=== PATIENT | female | born 1980 | race African-American/Black ===

== ENCOUNTER 2018-01-01 11:11 | Emergency (ER) | payer OTHER | END 2018-01-01 12:35 | disposition home or self-care (01) | LOC: ER 12:35 | DX: B07.0 Plantar wart (principal); J45.909 Unspecified asthma, uncomplicated; F31.9 Bipolar disorder, unspecified; Z88.8 Allergy status to other drugs, medicaments and biological substances; Z91.041 Radiographic dye allergy status | CPT/HCPCS: 99283 ==

== ENCOUNTER → 2018-04-08 | Outpatient (CLI) | payer OTHER ==
[2018-01-01 11:18] VITALS: BP 134/83
[~2018-04-08] MED LIST: ACET-704 PO; CETI10TA22 PO
--- NOTE | 2018-04-08 16:50 | RAD ---
Pelvic ultrasound, 04/08/2018: HISTORY: Excessive menstruation Transabdominal scans were initially performed. The pelvic structures were not clearly delineated and therefore transvaginal scanning was also performed. The uterus measures 10 x 7 x 5 cm. This central uterine echo complex measures approximately 9 mm which is within normal limits for the postmenopausal state. No uterine mass is seen. The right ovary measures 3.1 x 1.5 x 1.6 cm. The left ovary measures 4.3 x 1.8 x 2.2 cm. There is a 2.6 cm septated cyst or cyst cluster in the left ovary. There is blood flow in both ovaries. The adnexal regions are otherwise unremarkable. No free fluid is evident in the pelvis. IMPRESSION: 1. Small septated left ovarian cyst or cyst cluster. This is likely a functional cyst. Sonographic follow-up is suggested. 2. The pelvic ultrasound is otherwise unremarkable. Electronically signed by: Martin José MD (04/08/2018 4:47 PM) [facility]
== END | disposition home or self-care (01) ==
LOC: US 11:14
PROVIDERS: ATTEND Obstetrics & Gynecology
DX: N83.202 Unspecified ovarian cyst, left side (principal); N92.0 Excessive and frequent menstruation with regular cycle; N81.10 Cystocele, unspecified; N81.6 Rectocele; J45.909 Unspecified asthma, uncomplicated; Z88.8 Allergy status to other drugs, medicaments and biological substances
CPT/HCPCS: 76830; 76856

== ENCOUNTER 2018-06-24 13:49 | Emergency (ER) | payer OTHER ==
[~2018-06-24] VITALS: Ht 180.3 cm; Wt 130.2 kg
[2018-06-24 14:32] VITALS: BP 154/84
[2018-06-24 15:18] LABS: BILIRUBIN,URINE NEGATIVE (NEG); CLARITY,URINE CLEAR; COLOR,URINE YELLOW; NITRITE,URINE NEGATIVE (NEG); PH,URINE 6.5; PROTEIN,URINE NEGATIVE (NEG-TRACE); UROBILINOGEN,URINE 0.2 mg/dL (0.2 mg/dL)
[2018-06-24 15:23] LABS: BACTERIA,URINE 0 /HPF (0-FEW); RBC,URINE 0 /HPF (0-2); SQUAMOUS EPITHELIAL CELL,UR FEW /LPF; WBC,URINE 0 /HPF (0-4)
--- NOTE | 2018-06-24 16:50 | PHYS DOC ---
Past Medical History Past Medical History: Asthma, Bipolar Past Surgical History: Other Additional Past Surgical Histo: Back Alcohol Use: None Drug Use: Phencyclidine Adult General Chief Complaint Chief Complaint: SEXUALLY TRANSMITTED DISEASE HPI HPI please see paper chart as patient was seen during down time. Review of Systems Review of Systems Current Medications Current Medications Current Medications Medications (Trade) Dose Ordered Sig/Angel Start Time Stop Time Status Last Admin Dose Admin Azithromycin (Zithromax) 1,000 mg 1X ONCE 06/24/18 17:00 06/24/18 17:01 DC 06/24/18 16:55 1,000 MG Ceftriaxone Sodium (Rocephin Im) 250 mg 1X ONCE 06/24/18 17:00 06/24/18 17:01 DC 06/24/18 16:55 250 MG Allergies Allergies Allergies Coded Allergies Type Severity Reaction Last Updated Verified ibuprofen Allergy Unknown 01/01/18 Yes iodine Allergy Unknown 01/01/18 Yes Physical Exam Physical Exam Current Patient Data Vital Signs Vital Signs Date Time Temp Pulse Resp B/P (MAP) Pulse Ox O2 Delivery O2 Flow Rate FiO2 06/24/18 14:32 99.0 154/84 (107) 99.0 Lab Values Laboratory Tests Test 06/24/18 14:40 06/24/18 14:45 06/24/18 16:30 POC Urine HCG, Qualitative Hcg negative (Negative) Urine Collection Type Unknown Urine Color Yellow Urine Clarity Clear Urine pH 6.5 Urine Specific [place] 1.010 Urine Protein Negative mg/dL (NEG-TRACE) Urine Glucose (UA) Negative mg/dL (NEG) Urine Ketones (Stick) Negative mg/dL (NEG) Urine Blood Negative (NEG) Urine Nitrite Negative (NEG) Urine Bilirubin Negative (NEG) Urine Urobilinogen Dipstick 0.2 mg/dL (0.2 mg/dL) Urine Leukocyte Esterase Negative (NEG) Urine RBC 0 /HPF (0-2) Urine WBC 0 /HPF (0-4) Urine Squamous Epithelial Cells Few /LPF Urine Bacteria 0 /HPF (0-FEW) Chlamydia DNA Probe Negative (Negative) Neisseria gonorrhoeae DNA Probe Negative (Negative) Microbiology 06/24/18 Wet Prep - Final, Complete EKG EKG [] Radiology/Procedures Radiology/Procedures [] Course & Med Decision Making Course & Med Decision Making [] Dragon Disclaimer Dragon Disclaimer This electronic medical record was generated, in whole or in part, using a voice recognition dictation system. Departure Departure Referrals: ADRIAN GRIMM MD (PCP) LENKA CRUZ CATERING ATTENDANT Jun 24, 2018 16:50
[2018-06-24] MEDS ORDERED: AZITHROMYCIN 250 MG TABLET. PO ONE (17:00)
[2018-06-24] MEDS ORDERED: cefTRIAXone IM 250 MG VIAL IM ONE (17:00)
[2018-06-25 13:24] LABS: GC PROBE Negative (Negative)
== END 2018-06-24 17:21 | disposition home or self-care (01) ==
LOC: ER 13:49
DX: Z20.2 Contact with and (suspected) exposure to infections with a predominantly sexual mode of transmission (principal); J45.909 Unspecified asthma, uncomplicated; F31.9 Bipolar disorder, unspecified; Z88.6 Allergy status to analgesic agent; Z91.041 Radiographic dye allergy status
CPT/HCPCS: 81001; 81025; 87491; 87591; 96372; 99283; J0696; Q0111; Q0144

== ENCOUNTER 2018-08-28 07:29 | Observation (INO) | payer MEDICAID, OTHER ==
[2018-08-28] VITALS (8 sets, daily range): BP systolic 132–149; BP diastolic 84–92
[~2018-08-28] VITALS: Ht 177.8 cm; Wt 129.3 kg
[~2018-08-28 07:29] MED LIST changes: +ACYC800T PO; +ALBU1.25 NEB; +BUDE10.2 IH; +BUPIVAC MPF-EPI 0.5%-1:200000 30 ML VIAL. ONE; +CYCL10TA2 PO; +EPIPEN 2-P0.3 MG/0.3 IJ; +ERGO500027 PO; +ESTROGENS, CONJ VAGINAL CREAM 30GM TUBE. ONE; +FLUT9.9S NS; +GABA300C18 PO; +HYDR50TA PO; +IV RINGERS,LACTATED 1000ML 1,000 ML IV SCH; +LIDOCAINE 1% PF 2 ML VIAL. ID PRN; +LIDOCAINE 1%/EPI 1:100,000 20 ML VIAL. ONE; +LURA60TA PO; +METHYLENE BLUE 1% 10 ML VIAL. ONE; +MONT10TA49 PO; +MORPHINE SULFATE 4 MG/ML VIAL. IV PRN; +ONDANSETRON PF 4 MG/2 ML VIAL. IV PRN; +PRED-220 PO; +PROCHLORPERAZINE 10 MG/2 ML VIAL. IV PRN; +SURGICEL HEMOSTAT 4X8 EACH. ONE; +TRIA1TAB3 PO; +ceFAZolin SODIUM 3 GM in IV DEXTROSE 5% 100ML 100 ML IV PRN; +fentaNYL PF VIAL 100 MCG/2 ML VIAL IV PRN
[2018-08-28 07:55] LABS: U PREG PATIENT NEGATIVE (NEG)
[2018-08-28 08:16] LABS: BASO % 0 % (0-3); EOS % 0 % (0-3); HEMATOCRIT 40.4 % (36.0-47.0); HEMOGLOBIN 13.3 g/dL (12.0-15.5); LYMPH # 1.6 x10^3/uL (1.0-4.8); LYMPH % 12 % (24-48); MEAN CORPUSCULAR HEMOGLOBIN 29 pg (25-35); MEAN CORPUSCULAR HGB CONC 33 g/dL (31-37); MEAN CORPUSCULAR VOLUME 88 fL (79-100); MONO # 0.8 x10^3/uL (0.0-1.1); MONO % 6 % (0-9); NEUT # 10.4 x10^3uL (1.8-7.7); NEUT % 82 % (31-73); PLATELET COUNT 437 x10^3/uL (140-400); RED BLOOD COUNT 4.59 x10^6/uL (3.50-5.40); RED CELL DISTRIBUTION WIDTH 14.1 % (11.5-14.5); WHITE BLOOD COUNT 12.8 x10^3/uL (4.0-11.0)
[2018-08-28] MEDS ORDERED: LIDOCAINE 1%/EPI 1:100,000 20 ML VIAL. ONE (08:40)
[2018-08-28] MEDS ORDERED: MIDAZOLAM HCL/PF 2 MG/2 ML VIAL. ONE (08:42)
[2018-08-28] MEDS ORDERED: PROPOFOL 20 ML IV ONE (08:42)
[2018-08-28] MEDS ORDERED: DEXAMETHASONE SOD PHOS 20 MG/5 ML VIAL. ONE (08:42)
[2018-08-28] MEDS ORDERED: fentaNYL PF VIAL 250 MCG/5 ML VIAL ONE (08:42)
[2018-08-28] MEDS ORDERED: ROCURONIUM 50 MG/5 ML VIAL. ONE (08:42)
[2018-08-28] MEDS ORDERED: ONDANSETRON PF 4 MG/2 ML VIAL. ONE (08:43)
[2018-08-28] MEDS ORDERED: LIDOCAINE 2% PF 5 ML VIAL. ONE (08:43)
[2018-08-28 09:40] LABS: BARBITURATES NEG (NEG); BENZODIAZEPINES NEG (NEG); CANNABINOIDS NEG (NEG); COCAINE NEG (NEG); METHADONE NEG (NEG); OPIATES NEG (NEG); PHENCYCLIDINE POS (NEG)
[2018-08-28 09:47] LABS: AMPHETAMINE/METHAMPHETAMINE NEG (NEG)
[2018-08-28] MEDS ORDERED: SEVOFLURANE > 120 MINUTES. IH ONE (12:53)
[2018-08-28] MEDS ORDERED: NEOSTIGMINE 10 MG/10 ML VIAL. ONE (12:54)
[2018-08-28] MEDS ORDERED: GLYCOPYRROLATE 1 MG/5 ML VIAL. ONE (12:55)
--- NOTE | 2018-08-28 13:10 | PDOC ---
BRIEF OPERATIVE NOTE Date: Aug 28, 2018 Pre-Op Diagnosis 1. Menorrhagia 2. LEANA Cyst 3. Cystocele 4. Rectocele Post-Op Diagnosis Same Procedure Performed LAVH & LSO Anterior and Posterior Colporrhaphy Surgeon Dr. Spain Anesthesia Type: General Blood Loss 100 ml Specimens Obtained cervix, uterus, arnaud. fallopian tubes and LEANA Findings enlarged uterus, LEANA cyst; nml ROV Complications none Operative Note see dictation MARIOLA SPAIN Jr, MD Aug 28, 2018 13:10
[2018-08-28] MEDS ORDERED: diphenhydrAMINE HCL 25 MG CAPSULE PO PRN (13:15)
[2018-08-28] MEDS ORDERED: DEXTROSE 50% 25 GM / 50ML DISP.SYRIN. IV PRN (13:15)
[2018-08-28] MEDS ORDERED: CALCIUM CARBONATE 500 MG TAB.CHEW PO PRN (13:15)
[2018-08-28] MEDS ORDERED: PROCHLORPERAZINE 10 MG/2 ML VIAL. IV PRN (13:15)
[2018-08-28] MEDS ORDERED: diphenhydrAMINE 50 MG/ML VIAL IV PRN (13:15)
[2018-08-28] MEDS ORDERED: ZOLPIDEM 5 MG TABLET. PO PRN (13:15)
[2018-08-28] MEDS ORDERED: 0.9 % SODIUM CHLORIDE 10 ML DISP.SYRIN. IV PRN (13:15)
[2018-08-28] MEDS ORDERED: OPIUM/BELLADONNA 30/16.2MG SUPP.RECT. PR PRN (13:15)
[2018-08-28] MEDS ORDERED: SIMETHICONE 80 MG TAB.CHEW PO PRN (13:15)
[2018-08-28] MEDS ORDERED: ONDANSETRON PF 4 MG/2 ML VIAL. IV PRN (13:15)
[2018-08-28] MEDS: fentaNYL PF VIAL 100 MCG/2 ML VIAL IV PRN ×2 (13:37→13:50)
[2018-08-28] MEDS: HYDROmorphone 2 MG/ML VIAL IV PRN ×2 (14:10→14:20)
--- NOTE | 2018-08-28 15:47 | OP ---
DATE OF SURGERY: 08/28/2018 PREOPERATIVE DIAGNOSES: 1. Menorrhagia. 2. Left ovarian cyst. 3. Cystocele. 4. Rectocele. POSTOPERATIVE DIAGNOSES: 1. Menorrhagia. 2. Left ovarian cyst. 3. Cystocele. 4. Rectocele. PROCEDURE: 1. LAVH and LSO. 2. Anterior and posterior colporrhaphy. SURGEON: Mariola Spain MD. ANESTHESIA: GETA. ESTIMATED BLOOD LOSS: 100 mL. COMPLICATIONS: None. FINDINGS: Enlarged uterus, left ovarian cyst, normal right ovary. SUMMARY: The patient is a 38-year-old female with long history of menorrhagia as well as persistent left ovarian cyst. The patient was also diagnosed with cystocele and rectocele. The patient was counseled on risks, benefits and expectations of LAVH and LSO, anterior and posterior colporrhaphy and voiced clear understanding to proceed. DESCRIPTION OF PROCEDURE: The patient was taken to surgery suite and placed in dorsal lithotomy position. She was prepped with soap prep for vaginal prep and ChloraPrep for abdominal prep. After adequate anesthesia, bivalve speculum was placed vaginally. The anterior lip of the cervix grasped with single tooth tenaculum. The Opality uterine manipulator was then placed. The bivalve speculum was then removed. Attention was now placed on abdomen. Small transverse skin incision made just below the umbilicus with a scalpel. Veress needle was then placed through the infraumbilical incision site. The abdomen was allowed to insufflate up to 1-1/2 liters of CO2 gas. The Veress needle was then removed. A 5 mm trocar was placed. The scope was positioned. The uterus was enlarged. The left ovary demonstrated cyst, right ovary appeared normal. Two incisions were made in the left lower quadrant with a scalpel in which 5 mm trocars were placed. With aid of EnSeal device, the right round ligament was coagulated and dissected. The right fallopian tube was coagulated and dissected away from the right adnexa so in the right pelvic sidewall. The right broad ligament was then coagulated and dissected down to and including the right uterine artery. The left infundibulopelvic ligament was coagulated and dissected. The left round ligament was coagulated and dissected. Left broad ligament was coagulated and dissected down to the uterine artery on the left side. We then proceeded vaginally. A weighted speculum and curved [place] placed vaginally. The Valtchev uterine manipulator and single tooth tenaculum were removed. Saba clamps were placed on the anterior and posterior lip of the cervix. Lidocaine 1% with epinephrine was injected in a circumferential manner. Bovie cautery was utilized to circumscribe the cervix. The vaginal mucosa was dissected away from the lower uterine segment using blunt dissection with a moist Ray-José Miguel. The parametrial tissue was clamped bilaterally, cut and suture ligated with 2-0 Vicryl suture. Posterior cul-de-sac was then entered sharply with curved Warren scissors. Long weighted speculum was then placed. Uterosacral ligaments and cardinal ligaments were clamped bilaterally, cut, and suture ligated. One additional pedicle was taken just adjacent to the uterus bilaterally, cut, and suture ligated. The cervix, uterus, bilateral fallopian tubes and left ovary were then removed. A modified Mann's culdoplasty was performed incorporating the uterosacral ligaments bilaterally. The remainder of the vaginal cuff was reapproximated using 2-0 Vicryl suture in a dyvsle-er-ofdrh manner. Allis clamp was placed on the midline of the anterior vaginal wall mucosa. A second Allis clamp was placed about 3 cm below the first Allis clamp on the midline of the anterior vaginal wall mucosa. Lidocaine 1% with epinephrine injected between the 2 Allis clamps. Scalpel was utilized to make a linear incision between the 2 Allis clamps. The vaginal mucosa was then dissected away from the pubovesical fascia using sharp dissection with Metzenbaum scissors along with blunt dissection using moist Ray-José Miguel. The pubovesical fascia was reapproximated using 2-0 Vicryl suture in an interrupted fashion. The excess anterior vaginal wall mucosa was excised with Metzenbaum scissors. The remaining anterior vaginal wall mucosa was reapproximated using 2-0 Vicryl suture in a epoxgk-ru-yrkjf manner. The rectocele was reidentified were placed by placing the finger in the rectum. The Allis clamp was placed about 4 cm into the vaginal vault at the midline of the posterior vaginal wall mucosa. Two Allis clamps were placed in the posterior fourchette at the 3 o'clock and 9 o'clock position. Lidocaine 1% with epinephrine injected between the 2 Allis clamps as well along the midline of the posterior vaginal wall mucosa. Scalpel was utilized to make a transverse incision between the 2 Allis clamps. Metzenbaum scissors were utilized to undermine the posterior vaginal wall mucosa. The midline was then incised and the rectovaginal fascia was dissected away from the posterior vaginal wall mucosa using sharp dissection with Metzenbaum scissors along with blunt dissection using moist Ray-José Miguel. The rectovaginal fascia was reapproximated using 2-0 Vicryl suture in an interrupted fashion. The excess posterior vaginal wall mucosa was excised using Metzenbaum scissors. Moist vaginal packing was placed. Attention was then placed again on the abdomen. The abdomen was once again insufflated with CO2 gas. The scope was positioned. There was some minimal bleeding near the vaginal cuff of the left uterine artery, which was coagulated using the EnSeal device. Suction irrigation was utilized copiously to ensure no additional bleeding. Carla was then placed over the posterior vaginal cuff. The trocars were then removed under direct visualization. The abdomen was allowed to deflate as much as possible along with mechanical manipulation. The three skin incisions were reapproximated using 4-0 Vicryl suture in subcuticular manner. Marcaine 0.5% with epinephrine was injected at each incision site. The patient tolerated the procedure well and was sent to recovery room in stable condition. Sponge and needle count correct x 3. MARIOLA SPAIN MD DR: ED/jelani JOB#: [id number] / [id number]
[2018-08-28] MEDS: oxyCODONE/APAP 5/325 1 TAB TABLET PO PRN ×2 (16:22→20:37)
[2018-08-28] MEDS: GABAPENTIN 300 MG CAPSULE. PO SCH (22:03)
[2018-08-29 05:21] LABS: BASO % 0 % (0-3); EOS % 0 % (0-3); HEMATOCRIT 35.5 % (36.0-47.0); HEMOGLOBIN 11.7 g/dL (12.0-15.5); LYMPH # 2.9 x10^3/uL (1.0-4.8); LYMPH % 13 % (24-48); MEAN CORPUSCULAR HEMOGLOBIN 29 pg (25-35); MEAN CORPUSCULAR HGB CONC 33 g/dL (31-37); MEAN CORPUSCULAR VOLUME 88 fL (79-100); MONO # 1.9 x10^3/uL (0.0-1.1); MONO % 9 % (0-9); NEUT # 16.6 x10^3uL (1.8-7.7); NEUT % 78 % (31-73); PLATELET COUNT 360 x10^3/uL (140-400); RED BLOOD COUNT 4.01 x10^6/uL (3.50-5.40); WHITE BLOOD COUNT 21.4 x10^3/uL (4.0-11.0)
[2018-08-29] MEDS: oxyCODONE/APAP 5/325 1 TAB TABLET PO PRN ×2 (05:28→10:36)
[2018-08-29] MEDS: GABAPENTIN 300 MG CAPSULE. PO SCH (05:28)
[2018-08-29 06:34] VITALS: BP 127/86
--- NOTE | 2018-08-29 07:50 | PDOC ---
SURGICAL PROGRESS NOTE Subjective Pt. feeling well. No complaints. Vital Signs Vital Signs Date Time Temp Pulse Resp B/P (MAP) Pulse Ox O2 Delivery O2 Flow Rate FiO2 08/29/18 06:34 98.2 97 16 127/86 (100) 98.2 08/28/18 23:09 97 Room Air 08/28/18 15:32 2.0 I&O Intake and Output 08/29/18 07:01 Intake Total 3710 ml Output Total 3775 ml Balance -65 ml Intake Oral 1380 ml IV Total 1450 ml Other 880 ml Output Urine Total 3675 ml Estimated Blood Loss 100 ml PATIENT HAS A BLACKMON: No General: Alert HEENT: Atraumatic Lungs: Clear to auscultation Heart: Regular rate Abdomen: Normal bowel sounds, Soft, No tenderness Psych/Mental Status: Mental status NL Labs Laboratory Tests Test 08/28/18 07:30 08/28/18 08:05 08/29/18 04:40 Urine Test Negative (NEG) Urine Opiates Screen Neg (NEG) Urine Methadone Screen Neg (NEG) Urine Barbiturates Neg (NEG) Urine Phencyclidine Screen Pos (NEG) Urine Amphetamine/Methamphetamine Neg (NEG) Urine Benzodiazepines Screen Neg (NEG) Urine Cocaine Screen Neg (NEG) Urine Cannabinoids Screen Neg (NEG) Urine Ethyl Alcohol Neg (NEG) White Blood Count 12.8 x10^3/uL (4.0-11.0) 21.4 x10^3/uL (4.0-11.0) Red Blood Count 4.59 x10^6/uL (3.50-5.40) 4.01 x10^6/uL (3.50-5.40) Hemoglobin 13.3 g/dL (12.0-15.5) 11.7 g/dL (12.0-15.5) Hematocrit 40.4 % (36.0-47.0) 35.5 % (36.0-47.0) Mean Corpuscular Volume 88 fL (79-100) 88 fL (79-100) Mean Corpuscular Hemoglobin 29 pg (25-35) 29 pg (25-35) Mean Corpuscular Hemoglobin Concent 33 g/dL (31-37) 33 g/dL (31-37) Red Cell Distribution Width 14.1 % (11.5-14.5) 14.0 % (11.5-14.5) Platelet Count 437 x10^3/uL (140-400) 360 x10^3/uL (140-400) Neutrophils (%) (Auto) 82 % (31-73) 78 % (31-73) Lymphocytes (%) (Auto) 12 % (24-48) 13 % (24-48) Monocytes (%) (Auto) 6 % (0-9) 9 % (0-9) Eosinophils (%) (Auto) 0 % (0-3) 0 % (0-3) Basophils (%) (Auto) 0 % (0-3) 0 % (0-3) Neutrophils # (Auto) 10.4 x10^3uL (1.8-7.7) 16.6 x10^3uL (1.8-7.7) Lymphocytes # (Auto) 1.6 x10^3/uL (1.0-4.8) 2.9 x10^3/uL (1.0-4.8) Monocytes # (Auto) 0.8 x10^3/uL (0.0-1.1) 1.9 x10^3/uL (0.0-1.1) Eosinophils # (Auto) 0.0 x10^3/uL (0.0-0.7) 0.0 x10^3/uL (0.0-0.7) Basophils # (Auto) 0.0 x10^3/uL (0.0-0.2) 0.0 x10^3/uL (0.0-0.2) Laboratory Tests Test 08/28/18 08:05 08/29/18 04:40 White Blood Count 12.8 x10^3/uL (4.0-11.0) 21.4 x10^3/uL (4.0-11.0) Red Blood Count 4.59 x10^6/uL (3.50-5.40) 4.01 x10^6/uL (3.50-5.40) Hemoglobin 13.3 g/dL (12.0-15.5) 11.7 g/dL (12.0-15.5) Hematocrit 40.4 % (36.0-47.0) 35.5 % (36.0-47.0) Mean Corpuscular Volume 88 fL (79-100) 88 fL (79-100) Mean Corpuscular Hemoglobin 29 pg (25-35) 29 pg (25-35) Mean Corpuscular Hemoglobin Concent 33 g/dL (31-37) 33 g/dL (31-37) Red Cell Distribution Width 14.1 % (11.5-14.5) 14.0 % (11.5-14.5) Platelet Count 437 x10^3/uL (140-400) 360 x10^3/uL (140-400) Neutrophils (%) (Auto) 82 % (31-73) 78 % (31-73) Lymphocytes (%) (Auto) 12 % (24-48) 13 % (24-48) Monocytes (%) (Auto) 6 % (0-9) 9 % (0-9) Eosinophils (%) (Auto) 0 % (0-3) 0 % (0-3) Basophils (%) (Auto) 0 % (0-3) 0 % (0-3) Neutrophils # (Auto) 10.4 x10^3uL (1.8-7.7) 16.6 x10^3uL (1.8-7.7) Lymphocytes # (Auto) 1.6 x10^3/uL (1.0-4.8) 2.9 x10^3/uL (1.0-4.8) Monocytes # (Auto) 0.8 x10^3/uL (0.0-1.1) 1.9 x10^3/uL (0.0-1.1) Eosinophils # (Auto) 0.0 x10^3/uL (0.0-0.7) 0.0 x10^3/uL (0.0-0.7) Basophils # (Auto) 0.0 x10^3/uL (0.0-0.2) 0.0 x10^3/uL (0.0-0.2) Assessment/Plan A: POD #1 s/p LAVH, LSO and A&P Repair P: D/c home. MARIOLA SAENZ Jr, MD Aug 29, 2018 07:50
--- NOTE | 2018-08-29 07:51 | DISCH ---
DISCHARGE INSTRUCTIONS Condition on Discharge Condition on Discharge: Stable Activity After Discharge Activity Instructions for Disc: Activity as tolerated Lifting Instructions after Dis: No heavy lifting Driving Instructions after Dis: No driving for 2 weeks Diet after Discharge Diet after Discharge: Regular Contacting the DRWilla after DC Call your doctor for: Concerns you may have Follow-Up Follow up with: Dr. Spain in 2 wks. MARIOLA SPAIN Jr, MD Aug 29, 2018 07:51
[2018-08-29] MEDS ORDERED: OXYC1TAB15 PO (07:53)
[2018-08-29 09:30] LABS: % BANDS 1 % (0-9); % LYMPHS 23 % (24-48); % MONOS 5 % (0-10); % SEGS 71 % (35-66); PLT ESTIMATE ADEQUATE (ADEQUATE)
[2018-08-29 10:20] VITALS: BP 121/78
[2018-08-29 14:20] VITALS: BP 106/70
--- NOTE | 2018-09-01 08:08 | PATHOLOGY ---
[facility] Accession Number: [id number] . 01 Material submitted: . CERVIX,UTERUS,BILATERAL FALLOPIAN TUBES, AND LEFT OVARY . 01 Clinical history: . None provided. . 02 Diagnosis: Uterus and attached bilateral fallopian tubes and left ovary, laparoscopic assisted vaginal hysterectomy with bilateral salpingectomy and left oophorectomy: - Adenomyosis, uterine corpus, sub-basal, with mild myometrial hypertrophy (uterine weight 118 grams). - Chronic cervicitis with focal squamous metaplasia. - Nabothian cysts, cervix, several, small. - Proliferative endometrium. - Congestion of bilateral fallopian tubes. - Left paratubal cyst. - Cystic follicles of left ovary, multiple. LBQ/08/29/2018 . 02 Comment: There is no atypia or evidence of malignancy. (JPM/db; 08/29/2018) . 02 Electronically signed: . Chivo Negrete MD, Pathologist NPI- [id number] . 01 Gross description: . Received in formalin labeled "Brown, Lou, cervix, uterus, bilateral fallopian tubes and left ovary" is a hysterectomy specimen consisting of a uterus with attached fallopian tubes and an attached left ovary. The uterus weighs 118 g and measures 9.3 cm from fundus to cervix, 6.4 cm from cornu to cornu, and 4.5 cm from anterior to posterior. The serosa is pink dean and smooth. The cervical os is slitlike and measures 1.4 cm, and the ectocervix is pink-dean and glistening. The cervix is probed patent and the uterus is opened to reveal a 4.0 x 2.5 cm endometrial cavity and a 2.5 x 1.2 cm endocervical canal. The average endometrial thickness measures 0.4 cm and the average myometrial thickness measures 2.0 cm. The uterus is serially sectioned to reveal no leiomyomata. The right fimbriated fallopian tube measures 5.5 cm in length and 0.7 cm in diameter. The left fimbriated fallopian tube measures 4.8 cm in length and 0.7 cm in diameter. The serosal surfaces are pink dean and smooth with the left fallopian tube displaying a 1.4 cm thin-walled paratubal cyst. The fallopian tubes are serially sectioned to reveal pinpoint lumens. The left ovary weighs 13 g and measures 3.8 x 2.7 x 2.5 cm. The ovary has a dean-white cerebriform external surface and is serially sectioned to reveal dean-white ovarian parenchyma. The ovary has a thin walled simple cyst measuring 2.5 cm in greatest dimension. Entry Rep sections are submitted as follows: A1 12:00 cervix A2 6:00 cervix A3 anterior endomyometrium A4 posterior endomyometrium A5 inventory representative right fallopian tube A6-A7 inventory representative left fallopian tube A8-A9 inventory representative left ovary ([facility] [place]; 08/28/2018) SYC/SYC . 02 Pathologist provided ICD-10: N80.0, N72, N85.2, N88.8, N83.8 . 02 CPT . 033784 Specimen Comment: A courtesy copy of this report has been sent to Specimen Comment: [phone], . Specimen Comment: Report sent to / DR GRIMM Specimen Comment: A duplicate report has been generated due to demographic updates. Performed at: 01 [facility] [address], [place] [id number] MD Baldev Oliver MD Phone: [phone] Performed at: 02 [facility] [address] [place], [place] [id number] MD Chivo Negrete MD Phone: [phone]
== END 2018-08-29 16:07 | disposition home or self-care (01) ==
LOC: SURG 07:29 → 3 NORTH 13:10
PROVIDERS: ADMIT Obstetrics & Gynecology; ATTEND Obstetrics & Gynecology
DX: N92.0 Excessive and frequent menstruation with regular cycle (principal); N83.202 Unspecified ovarian cyst, left side; N81.6 Rectocele; N81.10 Cystocele, unspecified; N85.2 Hypertrophy of uterus; N88.8 Other specified noninflammatory disorders of cervix uteri; N72 Inflammatory disease of cervix uteri
CPT/HCPCS: 36415; 57260; 58552; 80307; 81025; 85007; 85025; 86850; 86870; 86900; 86901; 86920; A7015; G0378; G0379; J1100; J1170; J2001; J2250; J2405; J2704; J2710; J3010; J3490; J7030; J7120; 88307; Q9968

== ENCOUNTER 2018-11-28 16:55 | Emergency (ER) | payer OTHER ==
[~2018-11-28] VITALS: Ht 177.8 cm; Wt 129.3 kg
[~2018-11-28 16:55] MED LIST changes: -BUPIVAC MPF-EPI 0.5%-1:200000 30 ML VIAL. ONE; -ESTROGENS, CONJ VAGINAL CREAM 30GM TUBE. ONE; -IV RINGERS,LACTATED 1000ML 1,000 ML IV SCH; -LIDOCAINE 1% PF 2 ML VIAL. ID PRN; -LIDOCAINE 1%/EPI 1:100,000 20 ML VIAL. ONE; -METHYLENE BLUE 1% 10 ML VIAL. ONE; -MONT10TA49 PO; +MONT10TA9 PO; -MORPHINE SULFATE 4 MG/ML VIAL. IV PRN; -ONDANSETRON PF 4 MG/2 ML VIAL. IV PRN; +OXYC1TAB15 PO; -PROCHLORPERAZINE 10 MG/2 ML VIAL. IV PRN; -SURGICEL HEMOSTAT 4X8 EACH. ONE; -ceFAZolin SODIUM 3 GM in IV DEXTROSE 5% 100ML 100 ML IV PRN; -fentaNYL PF VIAL 100 MCG/2 ML VIAL IV PRN
[2018-11-28 17:14] VITALS: BP 136/86
[2018-11-28 17:59] LABS: BILIRUBIN,URINE NEGATIVE (NEG); CLARITY,URINE CLEAR; COLOR,URINE YELLOW; NITRITE,URINE NEGATIVE (NEG); PROTEIN,URINE NEGATIVE (NEG-TRACE); UROBILINOGEN,URINE 0.2 mg/dL (0.2 mg/dL)
[2018-11-28 18:08] LABS: BACTERIA,URINE FEW /HPF (0-FEW); RBC,URINE OCC /HPF (0-2); SQUAMOUS EPITHELIAL CELL,UR MANY /LPF; TRICHOMONAS,URINE PRESENT; WBC,URINE 20-40 /HPF (0-4)
[2018-11-28] MEDS ORDERED: AZITHROMYCIN 250 MG TABLET. PO ONE (18:30)
[2018-11-28] MEDS ORDERED: cefTRIAXone IM 250 MG VIAL IM ONE (18:30)
--- NOTE | 2018-11-28 18:52 | PHYS DOC ---
Past Medical History Past Medical History: Asthma, Bipolar (RIGOBERTO CROWLEY APRN) Past Surgical History: Other Additional Past Surgical Histo: Back (RIGOBERTO CROWLEY APRN) Alcohol Use: None Drug Use: Phencyclidine (RIGOBERTO CROWLEY APRN) Adult General Chief Complaint Chief Complaint: VAGINAL PROBLEM HPI HPI 38 y/o female presents to ER for c/o of 1 1/2 wk hx of intermittent dysuria, nausea, and foul smelling vaginal discharge. She reports she has had unprotected sex. She denies vaginal bleeding- hx of hysterectomy. She denies V/D, fever, fatigue, hematuria, or abd pain. Pt also has c/o bilat. hands with flaky skin- she reports she has been applying fungal cream. She denies redness, swelling, numbness/tingling, or bleeding. 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 (RIGOBERTO CROWLEY APRN) Review of Systems Review of Systems Constitutional: Denies fever or chills. Denies fatigue Eyes: Denies change in visual acuity, redness, or eye pain [] HENT: Denies nasal congestion or sore throat [] Respiratory: Denies cough or shortness of breath [] Cardiovascular: No additional information not addressed in HPI [] GI: Denies abdominal pain, nausea, vomiting, bloody stools or diarrhea [] : Denies hematuria. Reports dysuria and foul smelling vaginal discharge Musculoskeletal: Denies back pain or joint pain [] Integument: Reports bilat. hands with flaky skin- denies redness/drainage/swelling Neurologic: Denies headache, focal weakness or sensory changes [] Endocrine: Denies polyuria or polydipsia [] All other systems were reviewed and found to be within normal limits, except as documented in this note. (RIGOBERTO CROWLEY APRN) Current Medications Current Medications Current Medications Medications (Trade) Dose Ordered Sig/Angel Start Time Stop Time Status Last Admin Dose Admin Azithromycin (Zithromax) 1,000 mg 1X ONCE 11/28/18 18:30 11/28/18 18:31 DC 11/28/18 19:06 1,000 MG Ceftriaxone Sodium (Rocephin Im) 250 mg 1X ONCE 11/28/18 18:30 5/3/19 18:31 DC 11/28/18 19:06 250 MG Metronidazole (Flagyl) 2,000 mg 1X ONCE 11/28/18 19:00 11/28/18 19:01 DC 11/28/18 19:06 2,000 MG (KORI OLMSTEAD MD) Allergies Allergies Allergies Coded Allergies Type Severity Reaction Last Updated Verified celecoxib Allergy Severe Shortness of Air 08/29/18 Yes ibuprofen Allergy Severe Shortness of Air 08/29/18 Yes iodine Allergy Severe Anaphylaxis 08/29/18 Yes shellfish derived Allergy Severe Anaphylaxis 08/29/18 Yes (KORI OLMSTEAD MD) Physical Exam Physical Exam Constitutional: Well developed, well nourished, no acute distress, non-toxic appearance. [] HENT: Normocephalic, atraumatic, oropharynx moist, no oral exudates, nose normal. [] Eyes: Pupils equal, conjunctiva normal, no discharge. [] Neck: Normal range of motion, supple, no stridor. [] Cardiovascular:Heart rate regular rhythm, no murmur [] Lungs & Thorax: Bilateral breath sounds clear to auscultation- resp. equal/nonlabored Abdomen: Bowel sounds normal, soft/obese, no tenderness/distention Skin: Warm, dry, no erythema, no rash. [] Back: No tenderness, no CVA tenderness. [] Extremities: No tenderness, no cyanosis, no clubbing, ROM intact, no edema. Pt has dry/flaky skin bilat. hands which she is picking at during exam- no erythema/lesions. Cap refill brisk. 2+ bilat. radial pulse Neurologic: Alert and oriented X 3, normal motor function, normal sensory function, no focal deficits noted. [] Psychologic: Affect normal, judgement normal, mood normal. 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 No blood in vaginal vault Bimanual: No tenderness/mass (REFFITT,RIGOBERTO [place] APRN) Current Patient Data Vital Signs Vital Signs Date Time Temp Pulse Resp B/P (MAP) Pulse Ox O2 Delivery O2 Flow Rate FiO2 11/28/18 17:14 98.1 110 18 136/86 (103) 98 Room Air 98.1 (KORI OLMSTEAD MD) Lab Values Laboratory Tests Test 11/28/18 17:18 11/28/18 18:50 Urine Collection Type Clean catch Urine Color Yellow Urine Clarity Clear Urine pH 6.0 Urine Specific [place] 1.015 Urine Protein Negative mg/dL (NEG-TRACE) Urine Glucose (UA) Negative mg/dL (NEG) Urine Ketones (Stick) Negative mg/dL (NEG) Urine Blood Negative (NEG) Urine Nitrite Negative (NEG) Urine Bilirubin Negative (NEG) Urine Urobilinogen Dipstick 0.2 mg/dL (0.2 mg/dL) Urine Leukocyte Esterase Large (NEG) Urine RBC Occ /HPF (0-2) Urine WBC 20-40 /HPF (0-4) Urine Squamous Epithelial Cells Many /LPF Urine Bacteria Few /HPF (0-FEW) Urine Mucus Mod /LPF Urine Trichomonas Present Chlamydia DNA Probe Negative (Negative) Neisseria gonorrhoeae DNA Probe Negative (Negative) Microbiology 11/28/18 Wet Prep - Final, Complete 11/28/18 Urine Culture - Final, Complete 11/28/18 Urine Culture Result 1 (LILIBETH) - Final, Complete (KORI OLMSTEAD MD) EKG EKG [] (RIGOBERTO CROWLEY APRN) Radiology/Procedures Radiology/Procedures [] (RIGOBERTO CROWLEY APRN) Course & Med Decision Making Course & Med Decision Making Pertinent Labs reviewed. (See chart for details) Pt was evaluated in the ER for c/o vaginal discharge/odor and dysuria. Pt with hx of hysterectomy- denies any vaginal bleeding. Pelvic exam done with pt having foul odor and copious amt of yellow discharge. UA +Trich- which pt reported she had been tx'd for in the past. UA with lg leuk 20-40 WBCs on micro. Discussed pending GC/Chlam. and prophylactic tx. Discussed plans for PO azithromycin/Flagyl and IM Rocephin while in the ER and then would provide Keflex Rx for UTI with d/c paperwork. 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 Pt had dry/flaky skin to bilat. hands- advised on avoiding picking skin off and she had been using fungal cream for tx. Advised on using Eucerin cream or other type of moisturizer and f/u with her PCP if sxs persist. Education provided on s&s to return to ER for and d/c instructions were discussed. (RIGOBERTO CROWLEY APRN) Course & Med Decision Making Staff Physician Addendum: I was working in the ER during the course of this patient's visit. I was keo ilable for consultation as needed, but I was not directly involved in the care of this patient. (KORI OLMSTEAD MD) Dragon Disclaimer Dragon Disclaimer This electronic medical record was generated, in whole or in part, using a voice recognition dictation system. (RIGOBERTO CROWLEY APRN) Departure Departure Impression: Primary Impression: infection, trichomonal Additional Impressions: Bacterial vaginitis UTI (urinary tract infection) Disposition: 01 HOME, SELF-CARE Condition: STABLE Referrals: ADRIAN GRIMM MD (PCP) Patient Instructions: Bacterial Vaginosis, Safe Sex, Trichomoniasis, Urinary Tract Infection Additional Instructions: Keep scheduled appointment with your doctor for reevaluation and further care. Follow-up on your test results in 2-3 days with medical records. You were treated with Rocephin, azithromycin, and Flagyl while in the ER. You are being provided with a prescription for Keflex. Drink plenty of fluids. Tylenol as needed for pain control as directed on container. Scripts Cephalexin (KEFLEX) 500 Mg Capsule 1 CAP PO BID, #14 CAP 0 Refills Prov: RIGOBERTO CROWLEY APRN 11/28/18 Problem Qualifiers RIGOBERTO CROWLEY APRN November 28, 2018 18:52 KORI OLMSTEAD MD December 09, 2018 06:21
[2018-11-28] MEDS ORDERED: metroNIDAZOLE 500 MG TABLET PO ONE (19:00)
[2018-11-28] MEDS ORDERED: CEPH-264 PO (19:17)
[2018-12-01 15:16] LABS: GC PROBE Negative (Negative)
== END 2018-11-28 20:03 | disposition home or self-care (01) ==
LOC: ER 16:55
DX: N39.0 Urinary tract infection, site not specified (principal); N76.0 Acute vaginitis; B96.89 Other specified bacterial agents as the cause of diseases classified elsewhere; A59.8 Trichomoniasis of other sites; J45.909 Unspecified asthma, uncomplicated; F31.9 Bipolar disorder, unspecified; Z91.013 Allergy to seafood; Z88.6 Allergy status to analgesic agent; Z88.8 Allergy status to other drugs, medicaments and biological substances
CPT/HCPCS: 81001; 87086; 87491; 87591; 96372; 99284; J0696; Q0111; Q0144

== ENCOUNTER 2019-05-08 10:27 | Emergency (ER) | payer MEDICAID, OTHER ==
[~2019-05-08] VITALS: Ht 177.8 cm; Wt 129.3 kg
[~2019-05-08 10:27] MED LIST changes: +CEPH-264 PO; +MONT10TA49 PO; -MONT10TA9 PO
[2019-05-08 10:48] VITALS: BP 136/86
--- NOTE | 2019-05-08 10:58 | PHYS DOC ---
Past Medical History Past Medical History: Asthma, Bipolar (FÁTIMA MCDANIELS APRN) Past Surgical History: Other Additional Past Surgical Histo: Back (FÁTIMA MCDANIELS APRN) Alcohol Use: None Drug Use: Phencyclidine (FÁTIMA MCDANIELS APRN) Attending Signature I have participated in the care of this patient and I have reviewed and agree with all pertinent clinical information above including history, exam, and recommendations. (BEULAH PAUL MD) Adult General Chief Complaint Chief Complaint: ABDOMINAL PAIN HPI HPI Patient is a 39 year old female that presents with abdominal bloating ongoing a week. She states that she is worried that she could possibly have an STD, because of the bloating. The patient also states that she was nauseous 1 time a week ago that has gone away. She denies any discharge denies any kind of abdominal pain. States her pain level 0 out of 10 in severity. (FÁTMIA MCDANIELS APRN) Review of Systems Review of Systems Constitutional: Denies fever or chills [] Eyes: Denies change in visual acuity, redness, or eye pain [] HENT: Denies nasal congestion or sore throat [] Respiratory: Denies cough or shortness of breath [] Cardiovascular: No additional information not addressed in HPI [] GI: Reports 1 episode of nausea x 1 week ago. Denies abdominal pain, vomiting, bloody stools or diarrhea [] : Denies dysuria or hematuria. Denies vaginal discharge. Musculoskeletal: Denies back pain or joint pain [] Integument: Denies rash or skin lesions [] Neurologic: Denies headache, focal weakness or sensory changes [] Endocrine: Denies polyuria or polydipsia [] Complete systems were reviewed and found to be within normal limits, except as documented in this note. (FÁTIMA MCDANIELS APRN) Current Medications Current Medications Current Medications Medications (Trade) Dose Ordered Sig/Angel Start Time Stop Time Status Last Admin Dose Admin Albuterol/ Ipratropium (Duoneb) 3 ml 1X ONCE 05/08/19 11:00 05/08/19 11:01 DC 05/08/19 11:10 3 ML (BEULAH PAUL MD) Allergies Allergies Allergies Coded Allergies Type Severity Reaction Last Updated Verified celecoxib Allergy Severe Shortness of Air 08/29/18 Yes ibuprofen Allergy Severe Shortness of Air 08/29/18 Yes iodine Allergy Severe Anaphylaxis 08/29/18 Yes shellfish derived Allergy Severe Anaphylaxis 08/29/18 Yes (BEULAH PAUL MD) Physical Exam Physical Exam Constitutional: Well developed, well nourished, anxious, non-toxic appearance. [] HENT: Normocephalic, atraumatic, bilateral external ears normal, oropharynx moist, no oral exudates, nose normal. [] Eyes: PERRLA, EOMI, conjunctiva normal, no discharge. [] Neck: Normal range of motion, no tenderness, supple, no stridor. [] Cardiovascular:Heart rate regular rhythm, no murmur [] Lungs & Thorax: Bilateral breath sounds clear to auscultation with slight wheezing on the left. Abdomen: Bowel sounds normal, soft, no tenderness, no masses, no pulsatile masses. [] Skin: Warm, dry, no erythema, no rash. [] Back: No tenderness, no CVA tenderness. [] Extremities: No tenderness, no cyanosis, no clubbing, ROM intact, no edema. [] Neurologic: Alert and oriented X 3, normal motor function, normal sensory function, no focal deficits noted. [] Psychologic: Affect anxious, judgement normal (FÁTIMA MCDANIELS APRN) Current Patient Data Vital Signs Vital Signs Date Time Temp Pulse Resp B/P (MAP) Pulse Ox O2 Delivery O2 Flow Rate FiO2 05/08/19 11:14 98 Room Air 05/08/19 10:48 98.6 84 16 136/86 (103) 98.6 (BEULAH PAUL MD) Lab Values Laboratory Tests Test 05/08/19 10:53 Urine Collection Type Unknown Urine Color Straw Urine Clarity Clear Urine pH 7.0 Urine Specific [place] <=1.005 Urine Protein Negative mg/dL (NEG-TRACE) Urine Glucose (UA) Negative mg/dL (NEG) Urine Ketones (Stick) Negative mg/dL (NEG) Urine Blood Negative (NEG) Urine Nitrite Negative (NEG) Urine Bilirubin Negative (NEG) Urine Urobilinogen Dipstick 0.2 mg/dL (0.2 mg/dL) Urine Leukocyte Esterase Negative (NEG) Urine RBC Occ /HPF (0-2) Urine WBC Occ /HPF (0-4) Urine Squamous Epithelial Cells Few /LPF Urine Bacteria Few /HPF (0-FEW) POC Urine HCG, Qualitative Hcg negative (Negative) (BEULAH PAUL MD) Lab Values Laboratory Tests Test 05/08/19 10:53 Urine Collection Type Unknown Urine Color Straw Urine Clarity Clear Urine pH 7.0 Urine Specific [place] <=1.005 Urine Protein Negative mg/dL (NEG-TRACE) Urine Glucose (UA) Negative mg/dL (NEG) Urine Ketones (Stick) Negative mg/dL (NEG) Urine Blood Negative (NEG) Urine Nitrite Negative (NEG) Urine Bilirubin Negative (NEG) Urine Urobilinogen Dipstick 0.2 mg/dL (0.2 mg/dL) Urine Leukocyte Esterase Negative (NEG) Urine RBC Occ /HPF (0-2) Urine WBC Occ /HPF (0-4) Urine Squamous Epithelial Cells Few /LPF Urine Bacteria Few /HPF (0-FEW) POC Urine HCG, Qualitative Hcg negative (Negative) (FÁTIMA MCDANIELS APRN) EKG EKG [] (FÁTIMA MCDANIELS APRN) Radiology/Procedures Radiology/Procedures [] (FÁTIMA MCDANIELS APRN) Course & Med Decision Making Course & Med Decision Making Pertinent Labs and Imaging studies reviewed. (See chart for details) Discussed with patient that STD would not cause abdominal bloating. She denies discharge. The patient denies pain. It does not appear that she has an emergency medical issue at this time. Will check urine test since she is having bloating and will check UA. Will give Duoneb for wheezing. Discussed with patient about following up with [facility] as she was concerned about vaginal changes chronically since a hysterectomy and for a STD check if that is what she desires. She is not symptomatic of STD's at this time. A medical screening exam was performed on this patient and the patient does not appear to be having a medical emergency. Her symptoms are not of sufficient severity and within reasonable medical probability it is unlikely the absence of immediate medical attention would result in placing the health of the individu al (or, with respect to a woman, the health of the woman or her unborn child) in serious jeopardy, serious impairment to bodily functions, or serious dysfunction of any bodily organ or part. If , the patient is not in labor UA/Urine Preg is unremarkable. Patient lungs sound are better after breathing treatment. Will d/c home. (FÁTIMA MCDANIELS APRN) Dragon Disclaimer Dragon Disclaimer This electronic medical record was generated, in whole or in part, using a voice recognition dictation system. (FÁTIMA MCDANIELS APRN) Departure Departure Impression: Primary Impression: Asthma exacerbation Additional Impression: Abdominal bloating Disposition: 01 HOME, SELF-CARE Condition: STABLE Referrals: ADRIAN GRIMM MD (PCP) OVIDIO BECERRA MD Patient Instructions: Asthma, Adult Additional Instructions: Thank you for visiting [facility] We appreciate you trusting us with your care. If any additional problems come up don't hesitate to return to visit us. Please follow up with your primary care provider so they can plan additional care if needed and know about the problem that you had. If symptoms worsen come back to the Emergency Department. Any concerning symptoms that start such as chest pain, shortness of air, weakness or numbness on one side of the body, running high fevers or any other concerning symptoms return to the ER. Problem Qualifiers Primary Impression: Asthma exacerbation Asthma severity: mild Asthma persistence: intermittent Qualified Codes: J45.21 - Mild intermittent asthma with (acute) exacerbation FÁTIMA MCDANIELS APRN May 08, 2019 10:58 BEULAH PUAL MD May 09, 2019 09:28
[2019-05-08] MEDS ORDERED: IPRATRPIUM/ALBUTEROL 0.5/2.5MG 3 ML NEBU. NEB ONE (11:00)
[2019-05-08 11:21] LABS: BILIRUBIN,URINE NEGATIVE (NEG); CLARITY,URINE CLEAR; NITRITE,URINE NEGATIVE (NEG); PROTEIN,URINE NEGATIVE (NEG-TRACE); UROBILINOGEN,URINE 0.2 mg/dL (0.2 mg/dL)
[2019-05-08 11:27] LABS: BACTERIA,URINE FEW /HPF (0-FEW); COLOR,URINE STRAW; RBC,URINE OCC /HPF (0-2); SQUAMOUS EPITHELIAL CELL,UR FEW /LPF; WBC,URINE OCC /HPF (0-4)
== END 2019-05-08 11:36 | disposition home or self-care (01) ==
LOC: ER 10:27
DX: J45.21 Mild intermittent asthma with (acute) exacerbation (principal); R14.0 Abdominal distension (gaseous); F31.9 Bipolar disorder, unspecified; R11.0 Nausea; Z88.6 Allergy status to analgesic agent; Z88.8 Allergy status to other drugs, medicaments and biological substances; Z91.041 Radiographic dye allergy status; Z91.013 Allergy to seafood
CPT/HCPCS: 81001; 81025; 94640; 99283; J7620

== ENCOUNTER 2020-03-18 12:11 | Emergency (ER) | payer OTHER ==
[~2020-03-18] VITALS: Ht 180.3 cm; Wt 145.0 kg
[~2020-03-18 12:11] MED LIST changes: -METH-38 PO; -NAPR-514 PO
[2020-03-18 12:41] VITALS: BP 150/94
[2020-03-18] MEDS ORDERED: KETOROLAC 30 MG/ML VIAL. IM ONE (13:00)
[2020-03-18] MEDS ORDERED: DEXAMETHASONE SOD PHOS 20 MG/5 ML VIAL. IM ONE (13:00)
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
[2020-03-18] MEDS ORDERED: METH-38 PO (14:13)
[2020-03-18] MEDS ORDERED: NAPR-514 PO (14:13)
== END 2020-03-18 14:56 | disposition home or self-care (01) ==
LOC: ER 12:11
DX: S39.012A Strain of muscle, fascia and tendon of lower back, initial encounter (principal); M25.561 Pain in right knee; M25.511 Pain in right shoulder; M54.6 Pain in thoracic spine; J45.909 Unspecified asthma, uncomplicated; F31.9 Bipolar disorder, unspecified; Z90.710 Acquired absence of both cervix and uterus; Z98.890 Other specified postprocedural states; Z87.891 Personal history of nicotine dependence; Z91.040 Latex allergy status; Z91.013 Allergy to seafood; Z88.8 Allergy status to other drugs, medicaments and biological substances; V49.9XXA Car occupant (driver) (passenger) injured in unspecified traffic accident, initial encounter; Y93.89 Activity, other specified; Y92.413 State road as the place of occurrence of the external cause; Y99.8 Other external cause status
CPT/HCPCS: 72128; 72131; 73562; 96372; 99285; J1100; J1885

== ENCOUNTER → 2020-03-18 | Outpatient (CLI) | payer OTHER ==
[~2020-03-18] MED LIST changes: -CETI10TA22 PO; +CETI10TA24 PO; +METH-38 PO; +NAPR-514 PO
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
== END | disposition home or self-care (01) ==
LOC: RAD 11:41
PROVIDERS: ATTEND Family Medicine
DX: M19.012 Primary osteoarthritis, left shoulder (principal); M77.8 Other enthesopathies, not elsewhere classified
CPT/HCPCS: 73030